=== PATIENT | female | born 1925 | race Caucasian/White ===

== ENCOUNTER → 2017-02-14 | Outpatient (CLI) | payer OTHER ==
[~2017-02-14] MED LIST: ACETAMINOPHEN-1 EAC1 PO; ACTONEL 35 MG35 M1 PO; ACTONEL PO; ALTOPREV20 M1 PO; ALTOPREV20 MG PO; ATORVASTATIN CA40 MG PO; AUGMENTIN 875875 MG PO; BACITRACIN3.5 GM TOP; CALCIUM 600 +1 EAC1 PO; CARVEDILOL6.25 MG PO; CVS LUBRICATING15 ML OPHTHALMIC; ELIQUIS2.5 MG PO; ERYTHROMYCIN250 M1 PO; FLEXERIL PO; KEFLEX500 M1 PO; LASIX 20 MG TAB20 MG PO; LEVOTHYROXINE 0.1 MG PO; LISINOPRIL20 MG PO; PRINIVIL20 MG PO; SPIRIVA INH; SYNTHROID 0.10.1 M1 PO; SYNTHROID125 MCG PO; ZINC CHELATE50 MG PO
[2017-02-14 15:03] LABS: CALCIUM 8.7 mg/dL (8.5-10.1); POTASSIUM 3.8 mmol/L (3.5-5.1)
== END ==
LOC: M.LAB 14:39
PROVIDERS: Nurse Practitioner
DX: I11.0 Hypertensive heart disease with heart failure (principal); I50.22 Chronic systolic (congestive) heart failure; I42.9 Cardiomyopathy, unspecified; I63.9 Cerebral infarction, unspecified; E78.5 Hyperlipidemia, unspecified; E03.9 Hypothyroidism, unspecified; Z87.891 Personal history of nicotine dependence